=== PATIENT | female | born 1980 | race Caucasian/White ===

== ENCOUNTER 2018-05-11 08:05 | Day surgery (SDC) | payer BC ==
[2018-05-06 13:06] VITALS: BMI 63.8
[2018-05-11] MEDS ORDERED: PROPOFOL 20 ML ONE (09:46)
[2018-05-11] MEDS ORDERED: MIDAZOLAM HCL 2 MG/2 ML SINGLE DOSE VIAL ONE (09:46)
[2018-05-11 12:02] VITALS: TEMP 98.4
[2018-05-11 12:04] VITALS: BP 135/84; PULSE 104
--- NOTE | 2018-05-13 17:22 | PATH ---
Surgical Pathology Report Patient Name: ANN VAN [facility]. Rec. #: [id number] /Age/Gender: 1980 (Age: 37) / F Account: [id number] Location: [facility] Taken: 05/11/2018 Received: 05/11/2018 Reported: 05/13/2018 Physicians: Oseas Rodríguez M.D. Specimen(s) Received A: DUODENUM B: ANTRUM Clinical History GERD Postoperative diagnosis: Gastritis with status post gastric sleeve Final Diagnosis A. DUODENUM, BIOPSY: SMALL BOWEL MUCOSA WITHOUT SIGNIFICANT PATHOLOGIC FINDINGS. B. ANTRUM, BIOPSY: GASTRIC ANTRAL MUCOSA WITH MILD CHRONIC GASTRITIS. IMMUNOHISTOCHEMICAL STAIN FOR H. PYLORI IS NEGATIVE. Electronically Signed Armida De La Cruz M.D. Gross Description A. Received in formalin, labeled "duodenum" is a mcduffie, irregular portion of soft tissue measuring 0.4 cm. in greatest dimension. The specimen is submitted in toto in one cassette. B. Received in formalin, labeled "antrum" are 2 mcduffie, irregular portions of soft tissue averaging 0.4 cm. in greatest dimension. The specimens are submitted in toto in one cassette. /05/12/201805/12/2018
== END 2018-05-11 10:50 | disposition home or self-care (01) ==
LOC: FASU-ENDO 08:05
PROVIDERS: ATTEND Internal Medicine Gastroenterology
PROC: 0DB68ZX Excision of Stomach, Via Natural or Artificial Opening Endoscopic, Diagnostic (ICD-10-PCS; 2018-05-11)
PROC: 0DB98ZX Excision of Duodenum, Via Natural or Artificial Opening Endoscopic, Diagnostic (ICD-10-PCS; principal; 2018-05-11 10:08)
DX: K29.50 Unspecified chronic gastritis without bleeding (principal); R12 Heartburn; Z98.84 Bariatric surgery status
CPT/HCPCS: 84703; 88305-TC; 88342-TC

== ENCOUNTER 2020-08-07 07:04 | Day surgery (SDC) | payer BC ==
[2020-08-06 09:47] VITALS: BMI 65.7
[2020-08-07 07:28] VITALS: TEMP 98.7
[2020-08-07] MEDS ORDERED: LIDOCAINE HCL/PF 2% SDV 5ML VIAL ONE (07:56)
[2020-08-07] MEDS ORDERED: PROPOFOL 20 ML ONE (07:56)
[2020-08-07 09:42] VITALS: BP 113/67; PULSE 100
== END 2020-08-07 10:00 | disposition home or self-care (01) ==
LOC: FASU-ENDO 07:04
PROVIDERS: ATTEND Internal Medicine Gastroenterology
PROC: 0DB68ZX Excision of Stomach, Via Natural or Artificial Opening Endoscopic, Diagnostic (ICD-10-PCS; 2020-08-07)
PROC: 0DB98ZX Excision of Duodenum, Via Natural or Artificial Opening Endoscopic, Diagnostic (ICD-10-PCS; principal; 2020-08-07 09:03)
DX: Z01.818 Encounter for other preprocedural examination (principal); K29.80 Duodenitis without bleeding; K29.50 Unspecified chronic gastritis without bleeding; R12 Heartburn; Z98.84 Bariatric surgery status
CPT/HCPCS: 84703; 88305-TC; 88342-TC

== ENCOUNTER 2020-12-02 07:17 | Day surgery (SDC) | payer BC ==
[2020-11-27 15:13] VITALS: BMI 65.7
[2020-12-02] MEDS ORDERED: LIDOCAINE HCL/PF 2% SDV 5ML VIAL ONE (08:00)
[2020-12-02] MEDS ORDERED: PROPOFOL 20 ML ONE ×4 (08:00)
[2020-12-02 09:29] VITALS: TEMP 97.9
[2020-12-02 09:56] VITALS: BP 110/67; PULSE 98
== END 2020-12-02 09:50 | disposition home or self-care (01) ==
LOC: FASU-ENDO 07:17
PROVIDERS: ATTEND Internal Medicine Gastroenterology
PROC: 0DJD8ZZ Inspection of Lower Intestinal Tract, Via Natural or Artificial Opening Endoscopic (ICD-10-PCS; principal; 2020-12-02 08:57)
DX: K57.30 Diverticulosis of large intestine without perforation or abscess without bleeding (principal); Z87.19 Personal history of other diseases of the digestive system; R93.3 Abnormal findings on diagnostic imaging of other parts of digestive tract
CPT/HCPCS: 84703